=== PATIENT | male | born 1975 | race Caucasian/White ===

== ENCOUNTER 2016-11-02 16:28 | Emergency (ER) | payer MEDICAID ==
[~2016-11-02] VITALS: Ht 154.9 cm; Wt 56.9 kg
[2016-11-02 16:33] VITALS: Ht 154.9 cm; Wt 56.9 kg
[2016-11-02] MEDS ORDERED: DIPHTH/TET/ACEL PERTUSS (ADULT) 0.5 ML VIAL IM ONE (18:00)
--- NOTE | 2016-11-02 18:14 | RADRPT ---
PROCEDURE: XR right hand. CLINICAL INDICATION: Hand pain TECHNIQUE: Three views are available for review. COMPARISON: No prior studies are available for comparison. FINDINGS: There is an acute avulsion fracture off the radial aspect of the fourth distal phalangeal base. Ther e is an associated soft tissue injury. The osseous structures are otherwise normal in mineralization, architecture and alignment. No osse ous lesion is identified. The joints are unremarkable. IMPRESSION: Acute avulsion fracture off the radial aspect of the fourth distal phalangeal base RPTAT: HGDB .Akshat Holman MD, MD Date Time Electronically viewed and signed by .Akshat Holman MD, on 11/02/2016 18:14 .B/
[2016-11-02] MEDS ORDERED: LIDOCAINE 2% (MDV) 20 ML INJ INJ ONE (19:00)
[2016-11-02] MEDS ORDERED: IBUP400T22 PO (19:49)
[2016-11-02 20:00] VITALS: BP 132/77; PULSE 78; RESP 16
--- NOTE | 2016-11-02 20:11 | ERD ---
ER Documentation Chief Complaint Date/Time DATE: 11/02/16 TIME: 20:07 Chief Complaint RIGHT RING FINGER LAC HPI 41-year-old right handed male patient with no significant past medical history presents to the ED complaining of a right ring finger laceration that started earlier today. States that he is trying to move a refrigerator and accidentally tried to catch it as it slipped onto his friend's hand and sustained a crush injury while of the fourth right ring finger got lacerated. Denies any loss of sensation, loss of range of motion, fever, chills, weakness, numbness or tingling. Patient states that he is not up-to-date with his tetanus vaccine. Denies any foreign bodies. ROS All systems reviewed and are negative except as per history of present illness. Medications Home Meds Active Scripts Cephalexin* (Keflex*) 500 Mg Capsule, 500 MG PO QID for 7 Days, CAP Prov:CANDIS PERERA PA-C 11/02/16 Ibuprofen* (Motrin*) 400 Mg Tab, 400 MG PO Q6, #30 TAB Prov:CANDIS PERERA PA-C 11/02/16 Allergies Allergies: Coded Allergies: No Known Allergy (Unverified , 11/02/16) PMhx/Soc Medical and Surgical Hx: pt denies Medical Hx, pt denies Surgical Hx History of Surgery: No Anesthesia Reaction: No Hx Neurological Disorder: No Hx Respiratory Disorders: No Hx Cardiac Disorders: No Hx Psychiatric Problems: No Hx Miscellaneous Medical Probl: No Hx Alcohol Use: Yes (socially) Hx Substance Use: No Hx Tobacco Use: No Smoking Status: Never smoker Physical Exam Vitals Vital Signs Date Time Temp Pulse Resp B/P Pulse Ox O2 Delivery O2 Flow Rate FiO2 11/02/16 20:00 78 16 132/77 98 Room Air 11/02/16 16:33 98.1 84 20 126/89 99 Physical Exam Const: [id number], well-nourished. In no acute distress. Head: Atraumatic, normocephalic Eyes: Normal Conjunctiva without injection ENT: Normal external ear, nose and mouth. Neck: Full range of motion. No meningismus. Resp: Clear to auscultation bilaterally. No wheezing, rhonchi, rales, or crackles. No accessory muscle use. No retractions. Cardio: Regular rate and rhythm, no murmurs Skin: No petechiae or rashes Back: No midline tenderness. No CVA tenderness. Ext: No cyanosis, or edema. Cap refill less than 2 seconds. Distal pulses intact bilaterally. Total of 4 cm U-shaped laceration noted on the distal fourth right ring finger above the DIP joint with slight edema, no signs of erythema purulent discharge. Minimal bleeding noted. Neur: Awake and alert. Normal gait and coordination. Muscle strength 5/5. Sensation intact bilaterally. Psych: Normal Mood and Affect Results 24 hrs Current Medications Medications (Trade) Dose Ordered Sig/Lorrie Route PRN Reason Start Time Stop Time Status Last Admin Dose Admin Diphtheria/ Tetanus/Acell Pertussis (Adacel) 0.5 ml ONCE ONCE IM 11/02/16 18:00 11/02/16 18:01 DC 11/02/16 18:09 Lidocaine (Xylocaine 2% (Mdv) 20 ml) 20 ml ONCE ONCE INJ 11/02/16 19:00 11/02/16 19:01 DC Procedures/MDM This is a 41-year-old male patient with no significant past medical history presents to the ED complaining of a right ring finger laceration sustained while he was trying to move a refrigerator. Patient is afebrile and nontoxic- appearing. Patient has normal vital signs. A right hand x-ray was ordered to further evaluate patient. PROCEDURE: XR right hand. CLINICAL INDICATION: Hand pain TECHNIQUE: Three views are available for review. COMPARISON: No prior studies are available for comparison. FINDINGS: There is an acute avulsion fracture off the radial aspect of the fourth distal phalangeal base. There is an associated soft tissue injury. The osseous structures are otherwise normal in mineralization, architecture and alignment. No osseous lesion is identified. The joints are unremarkable. IMPRESSION: Acute avulsion fracture off the radial aspect of the fourth distal phalangeal base Patient is placed in a metal splint. Splint Assessment: Neurovascularly intact pre and post splint placement with good fit. Patient gave consent to perform laceration repair. Laceration Repair by me: Anesthesia: 5 cc 1% lidocaine locally Location: Right fourth ring finger Tendon/Joint/Nerves: No injury Foreign body: None detected after copious irrigation and exploration Technique: 10 4-0 Ethilon Simple Interrupted Sutures Complexity: No subcutaneous sutures/mucosal repair/ edge excision Post Closure Length: U shaped, Total of 4 cm Patient's bleeding was easily controlled in the department and there is no indication of anemia. Patient is neurovascularly intact. No evidence of compartment syndrome, neurologic injury, vascular injury, open joint, tendon laceration, or foreign body. Patient is appropriate for outpatient follow up. 48 hour wound check. Scar minimization instructions given. Instructed patient to return for suture removal in 7-10 days. Patient sustained an acute avulsion fracture of the radial aspect of the fourth distal phalangeal base. Patient has a open fracture. Patient's extremity symptoms have stabilized while they have been evaluated in the department and are appropriate for outpatient follow up. No evidence of fractures, dislocations , compartment syndrome, neurologic injury, vascular injury, open joint, open fracture, tendon laceration, septic arthritis, osteomyelitis, DVT, foreign body , or other emergent conditions. Discharge medications: Keflex, Ibuprofen Instructed patient to return to the ED sooner for any worsening symptoms for a referral to orthopedic physician. Follow up with primary care physician in 1-2 days. Patient's questions were answered. Patient understood and agreed with discharge plan. Departure Diagnosis: Primary Impression: Open fracture of finger of right hand Encounter type: initial encounter Qualified Code: S62.609B - Open fracture of finger of right hand, initial encounter Additional Impression: Laceration of finger Encounter type: initial encounter Qualified Code: S61.219A - Laceration of finger, initial encounter Condition: Stable Patient Instructions: Fracture, Finger (Open), Laceration, Hand [facility] Usted se naik hecho un examen mdico de control que le indica que no est en adelfo condicin que requiera tratamiento urgente en el Departamento de Emergencia. Un estudio ms profundo y el tratamiento de alford condicin pueden esperar sin ningn riesgo hasta que usted sea atendida/o en el consultorio de alford mdico o adelfo cl carl. Es responsabilidad suya arreglar adelfo roman para el seguimiento del saman. MANEJO DE CONDICIONES NO URGENTES EN EL FUTURO 1) Si usted tiene un mdico de atencin primaria: Usted debera llamar a alford mdico de atencin primaria antes de venir al departamento de emergencia. Despus de las horas de consultorio, alford doctor o alford asociado/a est disponible por telfono. El mdico o enfermero de patrick en el servicio telefnico puede asesorarle por heather medio para atender el problema, o saman contrario se puede programar adelfo roman. 2) Si usted no tiene un mdico de atencin primaria: Llame al mdico o clnica de referencia que aparece abajo emmanuel las horas de consultorio para hacer adelfo roman para que le vean. CLINICAS: [facility] [phone] [facility] [phone] [facility] [phone] [facility]. [place] [id number] [phone] [facility]. [place] [id number] [phone] [facility]. [phone] [address] [facility] [facility] () Usted se naik hecho un examen mdico de control que le indica que no est en adelfo condicin que requiera tratamiento urgente en el Departamento de Emergencia. Un estudio ms profundo y el tratamiento de alford condicin pueden esperar sin ningn riesgo hasta que usted sea atendida/o en el consultorio de alford mdico o adelfo cl carl. Es responsabilidad suya arreglar adelfo roman para el seguimiento del saman. MANEJO DE CONDICIONES NO URGENTES EN EL FUTURO 1) Si usted tiene un mdico de atencin primaria: Usted debera llamar a alford mdico de atencin primaria antes de venir al departamento de emergencia. Despus de las horas de consultorio, alford doctor o alford asociado/a est disponible por telfono. El mdico o enfermero de patrick en el servicio telefnico puede asesorarle por heather medio para atender el problema, o saman contrario se puede programar adelfo roman. 2) Si usted no tiene un mdico de atencin primaria: Llame al mdico o condado institucions de referencia que aparece abajo emmanuel las horas de consultorio para hacer adelfo roman para que le vean. SI USTED NO PUEDE PAGAR PARA KRISTINE UN MEDICO puede ir a: [facility] [id number] [place] [address] [facility] [address] [place] [address] [facility] [address] [place] [address] [facility] [address] [place] [address] [facility] Urgent Care 7 a.m.- 11 p.m. Every Day of the Week NO APPOINTMENT OR AUTHORIZATION NEEDED [facility] Hours: Mon-Fri 9:00 AM - 5:00 PM Additional Instructions: WOUND CHECK:CONSULTE A ALFORD MDICO EN 2 reyes para kristine ALFORD HERIDA. SUTURE REMOVAL:CONSULTE A ALFORD MDICO PARA SACAR ALFORD PUNTOS.PARA LA NESTOR 5-6 d as.EN OTRO LUGAR 7-10 reyes. Seguimiento con mdico de atencin primaria en 2 reyes para adelfo revisin de la herida y de remisin al CANDIS Trevizo PA-C November 02, 2016 20:11
[2016-11-02] MEDS ORDERED: CEPH-443 PO (20:40)
== END 2016-11-02 20:00 | disposition home or self-care (01) ==
LOC: FTE 16:28
DX: S62.634B Displaced fracture of distal phalanx of right ring finger, initial encounter for open fracture (principal); W20.8XXA Other cause of strike by thrown, projected or falling object, initial encounter; Y92.9 Unspecified place or not applicable; Z23 Encounter for immunization
CPT/HCPCS: 12002; 73130; 90471; 90715; Z7502; Z7610